=== PATIENT | male | born 1990 | race Caucasian/White ===

== ENCOUNTER 2022-03-13 21:57 | Inpatient (IN) | payer MEDICAID ==
[~2022-03-13] VITALS: Ht 167.6 cm; Wt 74.8 kg
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
--- NOTE | 2022-03-13 22:25 | NUR ---
PT TAKEN FOR CT SCAN
[2022-03-13] MEDS ORDERED: IV NS 0.9% 1,000 ML BAG IV ONE (22:30)
--- NOTE | 2022-03-13 22:40 | NUR ---
PT BACK FROM CT, RECONNECTED TO MONITOR
--- NOTE | 2022-03-13 22:44 | NUR ---
OSWALD GLASER AT BEDSIDE FOR EKG
[2022-03-13 23:13] LABS: BASOPHILS % (AUTO) 0.4 % (0.0-2.0); EOSINOPHILS % (AUTO) 0.6 % (0.0-6.0); HEMATOCRIT 44 % (39-51); HEMOGLOBIN 15.1 g/dL (13.5-17.5); LYMPHOCYTES # (AUTO) 1.8 K/uL (0.8-4.8); LYMPHOCYTES % (AUTO) 27.6 % (20.0-44.0); MEAN CORPUSCULAR HGB CONC 34 g/dl (31.0-36.0); MEAN CORPUSCULAR VOLUME 86 fL (80-96); MONOCYTES # (AUTO) 0.7 K/uL (0.1-1.30); MONOCYTES % (AUTO) 10.7 % (2.0-12.0); NEUTROPHILS % (AUTO) 60.7 % (43.0-81.0); PLATELET COUNT (AUTO) 330 K/uL (150-450); RED BLOOD CELL COUNT(AUTO) 5.16 MIL/uL (4.5-6.0); WHITE BLOOD COUNT (AUTO) 6.6 K/uL (4.3-11.0)
[2022-03-13 23:23] LABS: ALANINE AMINOTRANSFERASE 178 U/L (12-78); ALBUMIN 4.1 g/dL (3.4-5.0); ALCOHOL, BLOOD < 3 mg/dL (0-0); ALKALINE PHOSPHATASE 54 U/L (46-116); ASPARTATE AMINOTRANSFERASE 55 U/L (15-37); BILIRUBIN,DIRECT 0.2 mg/dL (0.0-0.2); BILIRUBIN,TOTAL 0.7 mg/dL (0.2-1.0); CARBON DIOXIDE 30 mmol/L (21-32); CHLORIDE 101 mmol/L (98-107); CREATININE 1.1 mg/dL (0.6-1.3); GLUCOSE 96 mg/dL (74-106); SODIUM SERUM 139 mmol/L (136-145); TOTAL PROTEIN, SERUM 8.1 g/dL (6.4-8.2); UREA NITROGEN, BLOOD 7 mg/dL (7-18)
[2022-03-13 23:27] LABS: POTASSIUM 2.5 mmol/L (3.5-5.1)
[2022-03-13 23:29] LABS: THYROID STIMULATING HORMONE 2.787 uIU/mL (0.358-3.74)
[2022-03-13] MEDS ORDERED: POTASSIUM CHLORIDE 20 MEQ TAB.PRT.SR PO ONE (23:43)
[2022-03-13] MEDS ORDERED: POTASSIUM CL. PREMIX PERIPHER. 50 ML ONE (23:44)
[2022-03-14] MEDS ORDERED: POTASSIUM CHLORIDE 10 MEQ/50 ML PREMIXED IVPB FOR PERIPHERAL LINE IV ONE
--- NOTE | 2022-03-14 00:19 | NUR ---
IV LINE ESTABLISHED, LAC20G
[2022-03-14] MEDS ORDERED: POTASSIUM CL. PREMIX PERIPHER. 50 ML ONE ×3 (00:54→03:59)
--- NOTE | 2022-03-14 01:15 | NUR ---
SECOND POTASSIUM BAG STARTED @0100 VIA IV PUMP LAC20G. END TIME 0200
[2022-03-14] MEDS ORDERED: HYDROCODONE/APAP 5/325MG TABLET PO PRN (01:30)
[2022-03-14] MEDS ORDERED: MAGNESIUM HYDROXIDE 30 ML UDC PO PRN (01:30)
[2022-03-14] MEDS ORDERED: TEMAZEPAM 15 MG CAPSULE PO PRN (01:30)
[2022-03-14] MEDS ORDERED: Z GUARD REMEDY 4 OZ OINT TP PRN (01:30)
[2022-03-14] MEDS ORDERED: ACETAMINOPHEN 325 MG TABLET PO PRN (01:30)
[2022-03-14] MEDS ORDERED: ONDANSETRON HCL/PF 4 MG/2 ML VIAL IVP PRN (01:30)
[2022-03-14] MEDS ORDERED: MAG HYDROX/AL HYDROX/SIMETH 30 ML UDC PO PRN (01:30)
[2022-03-14] MEDS ORDERED: MORPHINE SULFATE INJ 2 MG/ML DISP.SYRIN IV PRN (01:30)
[2022-03-14] MEDS ORDERED: IV NS 0.9% 1,000 ML IV PRN (01:30)
--- NOTE | 2022-03-14 02:00 | NUR ---
3RD POTASSIUM BAG STARTED @0200 VIA IV PUMP LAC20G. END TIME 0300
--- NOTE | 2022-03-14 03:10 | NUR ---
tele [phone]
--- NOTE | 2022-03-14 04:08 | NUR ---
4TH POTASSIUM BAG STARTED @0400 VIA IV PUMP LAC20G. END TIME 0500
--- NOTE | 2022-03-14 04:17 | NUR ---
REPORT GIVEN TO SABRA ROBERSON FOR BUTCH
--- NOTE | 2022-03-14 05:20 | NUR ---
ADMISSION Patient not fluent in German. DA Petty assist with Bahamian translation. 32 y/o male Patient is Alert Oriented to self only. Skin checked done, skin intact, no pressure injury. Sterling to room, unit, staff. Cooperative. Per patient he received 2 doses of Covid vaccine, does not remember what type. Made comfortable in bed. Fall precaution maintained.
[2022-03-14 05:30] VITALS: BP 157/64
[2022-03-14 07:11] LABS: CALCIUM, SERUM 8.2 mg/dL (8.5-10.1); CREATININE 0.8 mg/dL (0.6-1.3); POTASSIUM 3.4 mmol/L (3.5-5.1)
--- NOTE | 2022-03-14 07:20 | NUR ---
CAREER DEVELOPMENT COUNSELOR NOTE PATIENT IS ALERT AND ORIENTED X1, APPEARS DROWSY/ SLEEPY. PATIENT ON TELE MONITOR WITH READING SR 60-70'S SINUS RHYTHYM. PATIENT WITH IV ACCESS ON THE LEFT AC G20 WITH ONGOING NS RUNNING AT 75ML/HR, INFUSING WELL. ON MODERATE TO HIGH BACK REST. COMFORT MEASURES PROVIDED. SAFETY MEASURES ENSURED WITH BED IN LOWEST LOCKED POSITION, SIDERAILS RAISED, ALARM ON. CALL LIGHT WITHIN REACH AT ALL TIMES. IN STABLE CONDITION.
--- NOTE | 2022-03-14 07:26 | NUR ---
END OF SHIFT REPORT Patient in bed, Alert Oriented x1 to self only. Cooperative, no agitated behavior. Sinus Bradly in the Tele monitor HR 58. IV Left AC intact, IVF infusing. No c/o chest pain, denies N/V. Independent with ambulation. Patient admitted for Hypokalemia. Follow up with Diet order, endorsed to DA Zamora.
[2022-03-14] MEDS: PANTOPRAZOLE 40 MG TABLET.DR PO SCH (08:18)
--- NOTE | 2022-03-14 08:19 | NUR ---
SPOT MACHINE OPERATOR NOTE SEEN BY DR. EVANGELISTA
[2022-03-14] MEDS ORDERED: POTASSIUM CHLORIDE 20 MEQ TAB.PRT.SR PO ONE ×2 (08:30)
--- NOTE | 2022-03-14 08:30 | NUR ---
TOP AND SEAT COVER FITTER NOTE PATIENT FULLY AWAKE AND WAS ANSWERIGN SOME QUESTIONS. APPEARS TO BE ALITTLE WITHDRAWN. WILL RE ASSESS PATIENT. IN STABLE CONDITION.
[2022-03-14 08:32] VITALS: BP 154/82
--- NOTE | 2022-03-14 14:08 | NUR ---
TENTERER NOTE PATIENT REMOVED TELE BOX. PATIENT REFUSED IVF WELL. HEALTH TEACHING DONE REGARDING BENEFITS OF KEEPING IT ON. VERBALIZED UNDERSTANDING AND APPRECIATION. PATIENT SEEM TO BE APPREHENSIVE OF DISCLOSING INFORMATION WHEN ASKED ABOUT MEDICAL HISTORY AND MENTAL STATE. MD NOTIFIED.
[2022-03-14 16:45] VITALS: BP 154/103
--- NOTE | 2022-03-14 18:55 | NUR ---
TRANSIT SPECIALIST CLOSING NOTE PATIENT IS ALERT AND ORIENTED X2. PATIENT REFUSES TO ANSWER QUESTIONS DIRECTLY, SEEM TO BE HIDING SOME INFORMATION. PATIENT REFUSED TO HAVE TELE MONITOR AND IV ACCESS. MD AWARE. WAS CONTEMPLATING TO GO AMA BUT EXPLAINED CIRCUMSTANCES AND AGREED TO STAY ONE MORE NIGHT BUT WITHOUT THE IV ACCESS. ON MODERATE TO HIGH BACK REST. COMFORT MEASURES PROVIDED. SAFETY MEASURES ENSURED WITH BED IN LOWEST LOCKED POSITION, SIDERAILS RAISED, ALARM ON. CALL LIGHT WITHIN REACH AT ALL TIMES. IWILL ENDORSE TO NEXT SHIFT FOR CONTINUITY OF CARE.
[2022-03-14 20:00] VITALS: BP 169/113
--- NOTE | 2022-03-14 20:15 | NUR ---
PREFORM MACHINE OPERATOR OPENING NOTE PATIENT AWAKE IN BED, ALERT/ORIENTED X 2-3, PT ABLE TO MAKE NEEDS KNOWN. PATIENT STABLE ON RA, NO S/S OF DISTRESS OR SOB NOTED, BREATHING EVEN AND UNLABORED. PT CONTINUES TO REFUSE TELE MONITOR AND IV REINSERTION. PATIENT ALSO REFUSING VITALS BUT AFTER SPEAKING TO PATIENT RELUCTANTLY AGREED. PT NOTED WITH HIGH BP, NOTIFIED CARBON COATING MACHINE OPERATOR MD, NO NEW ORDERS AT THIS TIME. SAFETY MEASURES IN PLACE: CALL LIGHT WITHIN REACH, SIDE RAILS UP X 2, BED LOCKED IN LOWEST POSITION. WILL CONTINUE TO MONITOR PATIENT
--- NOTE | 2022-03-15 00:04 | NUR ---
OIL DIPPER NOTE PATIENT REFUSED MIDNIGHT VITALS, EXPLAINED RISKS AND BENEFITS BUT PATIENT STILL REFUSED. MD AWARE OF PT'S REFUSAL FOR CARE
--- NOTE | 2022-03-15 04:30 | NUR ---
FUSE CUTTER NOTE PATIENT REFUSED 4 AM VITALS, EXPLAINED RISKS AND BENEFITS BUT PATIENT STILL REFUSED
--- NOTE | 2022-03-15 06:57 | NUR ---
MEDICAL CODING SPECIALIST CLOSING NOTE PATIENT SLEEPING IN BED, ALERT/ORIENTED X 2-3, WOLOF SPEAKING. PT WITHDRAWN WHEN ASKED QUESTIONS AND SUSPICIOUS. PT WAS RESTLESS AND AWAKE MOST OF THE NIGHT BUT REFUSED SLEEPING MEDICATION. PATIENT STABLE ON RA, NO S/S OF DISTRESS OR SOB NOTED, BREATHING EVEN AND UNLABORED. PT CONTINUES TO REFUSE TELE MONITOR, IV REINSERTION AND VITALS, MD AWARE. SAFETY MEASURES IN PLACE: CALL LIGHT WITHIN REACH, SIDE RAILS UP X 2, BED LOCKED IN LOWEST POSITION. WILL ENDORSE TO DAYSHIFT NURSE FOR CONTINUITY OF CARE
[2022-03-15] MEDS: PANTOPRAZOLE 40 MG TABLET.DR PO SCH (07:30)
[2022-03-15] MEDS ORDERED: CLONIDINE HCL 0.1 MG TABLET PO PRN (07:30)
[2022-03-15 08:00] VITALS: BP 156/80
--- NOTE | 2022-03-15 08:23 | NUR ---
RN OPENING NOTE RECEIVED PATIENT IN BED, WITH HOB ELEVATED, ALERT AND ORIENTED X 3. ABLE TO MAKE NEEDS KNOWN. AFEBRILE AND NOT ON ANY FORM OF ACUTE DISTRESS. BREATHING EVEN AND NON LABORED. NO C/O PAIN OR DISCOMFORT. TRIED TO GIVE DUE MEDICATION BUT RESIDENT REFUSED DESPITE EXPLAINING RISK AND CONSEQUENCES OF NOT TAKING IT. ENCOURAGED TO INCREASE ORAL INTAKE. SAFETY MEASURES IN PLACE. KEPT BED IN LOCKED AND IN LOW POSITION TO REDUCE INJURY. ADVISED TO USE THE CALL LIGHT WHEN IN NEED OF ASSISTANCE.
--- NOTE | 2022-03-15 10:00 | NUR ---
RN NOTES: ENCOURAGED PATIENT TO HAVE HIS IV FLUIDS AND TELEMONITOR HOOKED/ATTACHED. PATIENT REFUSED, EXPLAINED THE RISK AND BENEFITS.
[2022-03-15 11:51] LABS: BASOPHILS % (AUTO) 0.4 % (0.0-2.0); EOSINOPHILS % (AUTO) 0.9 % (0.0-6.0); HEMATOCRIT 47 % (39-51); HEMOGLOBIN 15.5 g/dL (13.5-17.5); LYMPHOCYTES # (AUTO) 1.4 K/uL (0.8-4.8); LYMPHOCYTES % (AUTO) 24.6 % (20.0-44.0); MEAN CORPUSCULAR HGB CONC 33 g/dl (31.0-36.0); MEAN CORPUSCULAR VOLUME 88 fL (80-96); MONOCYTES # (AUTO) 0.5 K/uL (0.1-1.30); MONOCYTES % (AUTO) 8.5 % (2.0-12.0); NEUTROPHILS # (AUTO) 3.7 K/uL (1.8-8.9); NEUTROPHILS % (AUTO) 65.6 % (43.0-81.0); PLATELET COUNT (AUTO) 300 K/uL (150-450); WHITE BLOOD COUNT (AUTO) 5.6 K/uL (4.3-11.0)
[2022-03-15 12:03] LABS: CALCIUM, SERUM 9.5 mg/dL (8.5-10.1); MAGNESIUM 2.3 mg/dL (1.8-2.4); PHOSPHORUS 3.2 mg/dL (2.5-4.9); POTASSIUM 3.2 mmol/L (3.5-5.1)
--- NOTE | 2022-03-15 13:00 | NUR ---
RN NOTES: ENCOURAGED PT IF I CAN GIVE HIM IV FLUIDS AND ATTACH THE TELE MONITOR. PATIENT REFUSED. EXPLAINED THE RISK AND BENEFITS.
--- NOTE | 2022-03-15 14:00 | NUR ---
SW received consult request for homelessness. Pt. was asleep and unresponsive to SW's attempts to awake him. SW will follow up again later.
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
[2022-03-15 16:00] VITALS: BP 133/85
[2022-03-15] MEDS: POTASSIUM CHLORIDE 20 MEQ TAB.PRT.SR PO SCH ×2 (16:35→17:26)
--- NOTE | 2022-03-15 17:00 | NUR ---
RN NOTES: ENCOURAGED PT TO HAVE HIS IV FLUIDS AND TELE MONITOR ATTACHED, PATIENT REFUSED AND EXPLAINED THE RISK AND BENEFITS. VERBALIZED UNDERSTANDING.
--- NOTE | 2022-03-15 18:48 | NUR ---
RN CLOSING NOTE PATIENT IN BED, WITH HOB ELEVATED, ALERT AND ORIENTED X2. ABLE TO MAKE NEEDS KNOWN. AFEBRILE AND NOT ON ANY FORM OF ACUTE DISTRESS. BREATHING EVEN AND NON LABORED. NO C/O PAIN OR DISCOMFORT THROUGHOUT THE SHIFT. RELAYED LOW K LEVEL AND REPLACED ORDERED. OFFERED AND ENCOURAGED FLUIDS TOLERATED. EEG DONE AND AWAITNG FOR RESULT. SAFETY MEASURES IN PLACE. KEPT BED IN LOCKED AND IN LOW POSITION. SIDE RAILS UP. ADVISED TO USE THE CALL LIGHT WHEN IN NEED OF ASSISTANCE. CONSTANT VISUAL CHECK DONE TO ENSURE SAFETY. ALL NURSING NEEDS ATTENDED.
--- NOTE | 2022-03-15 19:20 | NUR ---
RN OPENING NOTE PATIENT IN BED, EYES CLOSED. SLEEPING. PATIENT IS EASILY AWAKENED. PATIENT IS PRIMARILY GERMAN SPEAKING, A/O X 2. PATIENT IS ON RA, TOLERATING WELL. BREATHING EVEN AND UNLABORED. PATIENT ENCOURAGED TO HAVE TELE BOX AND IV ACCESS BUT PATIENT STILL REFUSES. PATIENT DENIES ANY PAIN. NOT IN ANY ACUTE DISTRESS. SAFETY MEASURES IN PLACE: BED LOCKED AND IN LOWEST POSITION, CALL LIGHT WITHIN REACH, SIDE RAILS UP. WILL MONITOR PATIENT CLOSELY.
[2022-03-15 20:00] VITALS: BP 147/81
[2022-03-16] VITALS: BP 113/68
[2022-03-16 04:00] VITALS: BP 141/86
[2022-03-16 06:32] LABS: CALCIUM, SERUM 8.8 mg/dL (8.5-10.1); CREATININE 0.8 mg/dL (0.6-1.3); POTASSIUM 3.6 mmol/L (3.5-5.1)
--- NOTE | 2022-03-16 06:58 | NUR ---
RN CLOSING NOTE PATIENT IN BED, EYES CLOSED. SLEEPING. PATIENT IS EASILY AWAKENED. PATIENT IS PRIMARILY PASHTO SPEAKING, A/O X 2. PATIENT IS ON RA, TOLERATING WELL. BREATHING EVEN AND UNLABORED. PATIENT ENCOURAGED TO HAVE TELE BOX AND IV ACCESS BUT PATIENT STILL REFUSES. PATIENT DENIES ANY PAIN. NOT IN ANY ACUTE DISTRESS. SAFETY MEASURES IN PLACE: BED LOCKED AND IN LOWEST POSITION, CALL LIGHT WITHIN REACH, SIDE RAILS UP. WILL ENDORSE TO DAY SHIFT NURSE FOR BUTCH.
[2022-03-16] MEDS: PANTOPRAZOLE 40 MG TABLET.DR PO SCH (07:45)
--- NOTE | 2022-03-16 07:45 | NUR ---
PLANNING AND ANALYSIS MANAGER OPENING NOTE RECEIVED PATIENT IN BED, SLEEPING EASILY AWAKENED. VIETNAMESE SPEAKING MOSTLY, A/O X 2-3. ON RA, TOLERATING WELL WITH NO S/SX OF RESPIRATORY DISTRESS. BREATHING EVEN AND UNLABORED. ENCOURAGED PT TO PLACE TELE BOX AND IV ACCESS BUT PATIENT IS STILL REFUSING DESPITE EDUCATION. REPORTS NO PAIN NOR DISCOMFORT AT THIS TIME. PT IS ORIENTED TO THE FEATURES OF THE ROOM. SAFETY MEASURES IN PLACE: BED LOCKED AND IN LOWEST POSITION, CALL LIGHT AND TRAY TABLE WITHIN REACH, SIDE RAILS UP X2. WILL CONTINUE TO MONITOR.
[2022-03-16 08:00] VITALS: BP 130/82
[2022-03-16 16:00] VITALS: BP 136/69
--- NOTE | 2022-03-16 17:00 | NUR ---
RN NOTES NEURO CONSULT DONE.
--- NOTE | 2022-03-16 19:00 | NUR ---
RN NOTES - PSYCHE CONSULT SENT TO [facility]
--- NOTE | 2022-03-16 19:28 | NUR ---
MISSION SYSTEMS ENGINEER CLOSING NOTE PATIENT IN BED, SLEEPING, EASILY AROUSED, TONGAN SPEAKING MOSTLY, A/O X 2-3. ON RA, TOLERATING WELL WITH NO S/SX OF RESPIRATORY DISTRESS. BREATHING EVEN AND UNLABORED. PATIENT REFUSED THE TELE BOX AND IV ACCESS THROUGHOUT MY SHIFT. NO REPORTS OF PAIN AND BEHAVIORAL CHANGES DURING MY SHIFT. SAFETY MEASURES MAINTAINED: BED LOCKED AND IN LOWEST POSITION, CALL LIGHT AND TRAY TABLE WITHIN REACH, SIDE RAILS UP X2. ENDORSED TO FRONT DESK ADMINISTRATOR.
--- NOTE | 2022-03-16 19:30 | NUR ---
RN OPENING NOTE PATIENT IN BED, EYES CLOSED. SLEEPING. PATIENT IS EASILY AWAKENED. PATIENT IS PRIMARILY HUNGARIAN SPEAKING, A/O X 2. PATIENT IS ON RA, TOLERATING WELL. BREATHING EVEN AND UNLABORED. PATIENT NOT CONNECTED TO TELE MONITOR AT THIS TIME AND NO IV ACCESS NOTED. PATIENT DENIES ANY PAIN. NOT IN ANY ACUTE DISTRESS. SAFETY MEASURES IN PLACE: BED LOCKED AND IN LOWEST POSITION, CALL LIGHT WITHIN REACH, SIDE RAILS UP. WILL MONITOR PATIENT CLOSELY.
[2022-03-16 20:00] VITALS: BP 121/73
[2022-03-17] VITALS: BP 124/78
[2022-03-17 04:40] VITALS: BP 116/68
--- NOTE | 2022-03-17 06:53 | NUR ---
RN CLOSING NOTE PATIENT IN BED, EYES CLOSED. SLEEPING. PATIENT IS EASILY AWAKENED. PATIENT IS PRIMARILY CITIZEN OF [place] SPEAKING, A/O X 2. PATIENT IS ON RA, TOLERATING WELL. BREATHING EVEN AND UNLABORED. PATIENT NOT CONNECTED TO TELE MONITOR AT THIS TIME AND NO IV ACCESS, PATIENT STILL REFUSES. PATIENT DENIES ANY PAIN. NOT IN ANY ACUTE DISTRESS. SAFETY MEASURES IN PLACE: BED LOCKED AND IN LOWEST POSITION, CALL LIGHT WITHIN REACH, SIDE RAILS UP. WILL ENDORSE PATIENT TO DAY SHIFT NURSE FOR BUTCH.
[2022-03-17 06:56] LABS: BASOPHILS % (AUTO) 0.5 % (0.0-2.0); EOSINOPHILS % (AUTO) 1.6 % (0.0-6.0); HEMATOCRIT 43 % (39-51); HEMOGLOBIN 14.4 g/dL (13.5-17.5); LYMPHOCYTES # (AUTO) 2.1 K/uL (0.8-4.8); LYMPHOCYTES % (AUTO) 35.6 % (20.0-44.0); MEAN CORPUSCULAR HGB CONC 34 g/dl (31.0-36.0); MEAN CORPUSCULAR VOLUME 87 fL (80-96); MONOCYTES # (AUTO) 0.5 K/uL (0.1-1.30); NEUTROPHILS # (AUTO) 3.1 K/uL (1.8-8.9); NEUTROPHILS % (AUTO) 53.3 % (43.0-81.0); PLATELET COUNT (AUTO) 285 K/uL (150-450); WHITE BLOOD COUNT (AUTO) 5.8 K/uL (4.3-11.0)
[2022-03-17 07:31] LABS: CALCIUM, SERUM 8.7 mg/dL (8.5-10.1); CREATININE 0.7 mg/dL (0.6-1.3); MAGNESIUM 2.3 mg/dL (1.8-2.4); PHOSPHORUS 3.8 mg/dL (2.5-4.9); POTASSIUM 3.7 mmol/L (3.5-5.1)
[2022-03-17 08:00] VITALS: BP 123/93
[2022-03-17 08:02] LABS: ALBUMIN 3.3 g/dL (3.4-5.0); BILIRUBIN,DIRECT 0.1 mg/dL (0.0-0.2)
[2022-03-17] MEDS: PANTOPRAZOLE 40 MG TABLET.DR PO SCH (08:18)
[2022-03-17 08:53] LABS: BILIRUBIN,TOTAL 0.4 mg/dL (0.2-1.0)
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
--- NOTE | 2022-03-17 15:58 | NUR ---
AMA NOTES PT IS AOX3-4, VERBALIZED THAT HE WANTS TO LEAVE THE HOSPITAL AGAINST MEDICAL ADVICE AND WILL GO TO HIS 'S HOUSE. SW SAW THE PATIENT EARLIER AND SPOKE TO THE . EXPLAINED THE RISKS AND CONSEQUENCES OF LEAVING THE HOSPITAL AMA . MADE AWARE, PT SIGNED AMA FORM. PATIENT HAS NO IV ACCESS. ALL BELONGINGS ACCOUNTED FOR, PT SIGNED BELONGING LIST, NAME ARM BAND REMOVED, PT LEFT UNIT AT 1455 ACCOMPANIED BY SOBEIDA BREWER.
== END 2022-03-17 15:00 | disposition left against medical advice (07) | DRG 53 ==
LOC: ER 22:03 → TELE 03-14 04:19
PROVIDERS: ADMIT Internal Medicine; ATTEND Student in an Organized Health Care Education/Training Program
DX: R56.9 Unspecified convulsions (principal); G92.9 Unspecified toxic encephalopathy; F29 Unspecified psychosis not due to a substance or known physiological condition; F15.121 Other stimulant abuse with intoxication delirium; E87.6 Hypokalemia; Z20.822 Contact with and (suspected) exposure to COVID-19; R74.01 Elevation of levels of liver transaminase levels; F19.10 Other psychoactive substance abuse, uncomplicated; Z53.29 Procedure and treatment not carried out because of patient's decision for other reasons
CPT/HCPCS: 36415; 70450-TC; 71045-TC; 80048-TC; 80076-TC; 83735-TC; 84100-TC; 84443-TC; 84484-TC; 85025-TC; 87081-TC; 95819-TC; C9803; G0378; G0480; J3480; J7030